=== PATIENT | male | born 1950 | race Caucasian/White ===

== ENCOUNTER 2024-12-13 16:50 | Emergency (ER) | payer MEDICARE ==
[~2024-12-13] VITALS: Ht 172.7 cm; Wt 112.3 kg
[2024-12-13] MEDS ORDERED: MORPHINE SULFATE 4 MG/ML VIAL IV ONE ×2 (18:15→21:15)
[2024-12-13 18:27] LABS: BILIRUBIN, URINE NEGATIVE (negative); BLOOD/HGB, URINE NEGATIVE (Negative); KETONE, URINE NEGATIVE (Negative); LEUK ESTERASE, URINE NEGATIVE (negative); NITRITE, URINE NEGATIVE (negative)
[2024-12-13 18:48] LABS: BASOPHILS 0.8 % (0-2); EOSINOPHILS 1.7 % (0-6); HEMATOCRIT 37.8 % (35.0-50.0); HEMOGLOBIN 13.4 g/dL (12.0-18.0); LYMPHOCYTES 20.4 % (24-44); MCH 31.9 (27-36); MCHC 35.5 g/dl (30-36); MCV 89.9 fl (81-99); MONOCYTES 10.3 % (0-12); NEUTROPHILS 66.8 % (39-80); PLATELET COUNT 199 K/uL (140-440); RBC 4.21 M/ul (4.3-5.7); RDW 15.3 (10.5-15.0)
[2024-12-13 19:00] LABS: ALBUMIN 4.2 g/dL (3.4-5.0); ALBUMIN/GLOBULIN RATIO 1.31 (1.1-2.4); ANION GAP 12.8 (7-21); BILIRUBIN, TOTAL 0.3 mg/dL (0.2-1.0); BUN/CREATININE RATIO 14.85 (6.0-28.6); CALCIUM 9.3 mg/dL (8.5-10.1); CREATININE, SERUM 1.01 mg/dL (0.70-1.30); POTASSIUM 3.8 mmol/L (3.5-5.1); PROTEIN, TOTAL 7.4 g/dL (6.4-8.2)
[2024-12-13] MEDS ORDERED: HYDROCODONE BIT/ACETAMINOPHEN 5/325 MG 1 TAB HOME.PACK PO ONE (22:00)
[2024-12-13] MEDS ORDERED: DEXAMETHASONE SOD PHOS 10 MG/ML VIAL IV ONE (22:00)
[2024-12-13] MEDS ORDERED: PREDNISONE20 MG PO (22:00)
[2024-12-13 22:58] VITALS: BP 184/98
== END 2024-12-13 22:58 | disposition home or self-care (01) ==
LOC: ED 16:50
PROVIDERS: Emergency Medicine
DX: M46.1 Sacroiliitis, not elsewhere classified (principal); M25.551 Pain in right hip; I10 Essential (primary) hypertension; I25.2 Old myocardial infarction
CPT/HCPCS: 36415; 74177; 80053; 81003; 85025; 96375; 99284-25; A9270; J1100; J2270; Q9967